=== PATIENT | female | born 1995 | race Caucasian/White ===

== ENCOUNTER 2017-04-27 23:08 | Emergency (ER) | payer OTHER ==
[~2017-04-27] VITALS: Ht 167.6 cm; Wt 48.9 kg
[2017-04-27] MEDS ORDERED: AMITRIPTYLINE H10 MG PO (23:34)
[2017-04-27] MEDS ORDERED: BUSPAR15 MG PO (23:34)
[2017-04-28 00:20] VITALS: BP 126/77
== END 2017-04-28 00:21 | disposition home or self-care (01) ==
LOC: EXP 23:08 → EME 23:08 → EXP 04-28 00:21
DX: R22.2 Localized swelling, mass and lump, trunk (principal); M79.622 Pain in left upper arm; Z80.3 Family history of malignant neoplasm of breast; Z79.3 Long term (current) use of hormonal contraceptives; Z80.0 Family history of malignant neoplasm of digestive organs
CPT/HCPCS: 99281; 99283

== ENCOUNTER 2017-08-07 23:43 | Emergency (ER) | payer OTHER ==
[~2017-08-07] VITALS: Ht 167.6 cm; Wt 51.1 kg
[~2017-08-07 23:43] MED LIST: AMITRIPTYLINE H10 MG PO; BUSPAR15 MG PO
[2017-08-07 23:46] VITALS: BP 137/95
[2017-08-08 00:07] LABS: HEMATOCRIT 36.1 % (36.0-46.0); MCHC 33.2 G/DL (30.0-36.0); MCV 90.3 FL (83-99); MEAN PLAT.VOLUME 9.4 uM^3 (9.5-12.4); PLATELET COUNT 236 K/uL (156-360); RBC DIS.WIDTH-CV 12.5 % (11.8-14.6); RBC DIS.WIDTH-SD 41.6 % (39-53); WHITE BLOOD COUNT 8.5 K/uL (4.1-10.2)
[2017-08-08 00:27] LABS: CHLORIDE 105 mEq/L (99-109); POTASSIUM 3.9 mEq/L (3.7-5.4); SODIUM 138 mEq/L (136-147)
[2017-08-08 00:29] LABS: GLUCOSE 102 mg/dL (70-99)
[2017-08-08 00:30] LABS: ANION GAP 14 MEQ/L (2-14)
[2017-08-08 00:31] LABS: TOTAL BILIRUBIN 0.2 mg/dL (0.0-1.0)
[2017-08-08 00:32] LABS: ALKALINE PHOSPHATASE 78 IU/L (3-129)
[2017-08-08 00:33] LABS: GFR ESTIMATE (CALCULATED) > 59 mL/min/
[2017-08-08 00:34] LABS: UREA NITROGEN (BUN) 11 mg/dL (9-23)
[2017-08-08 00:42] LABS: QUANTITATIVE HCG < 4.0 MIU/ML
== END 2017-08-08 01:10 | disposition left against medical advice (07) ==
LOC: EME 23:43
DX: R06.02 Shortness of breath (principal); Z53.21 Procedure and treatment not carried out due to patient leaving prior to being seen by health care provider
CPT/HCPCS: 80053; 81003; 84702; 85027; 93005